=== PATIENT | female | born 2000 | race Caucasian/White ===

== ENCOUNTER 2023-01-24 16:55 | Observation (INO) | payer OTHER ==
[~2023-01-24] VITALS: Ht 154.9 cm; Wt 64.0 kg
[2023-01-24] MEDS ORDERED: PNV91TAB8 PO (17:33)
[2023-01-24 17:36] VITALS: BP 127/67
[2023-01-24] MEDS ORDERED: LIDOCAINE 1% 500 MG/50 ML VIAL ONE (18:46)
[2023-01-24] MEDS ORDERED: LIDOCAINE 1% 500 MG/50 ML VIAL INJ SCH (19:00)
[2023-01-24] MEDS ORDERED: AZITHROMYCIN 250 MG TAB PO SCH (19:30)
[2023-01-24] MEDS ORDERED: cefTRIAXone 1,000 MG in LIDOCAINE MPF 1% 2.1 ML IM ONE (19:30)
[2023-01-24] MEDS ORDERED: cefTRIAXone 1,000 MG VIAL ONE (20:12)
== END 2023-01-24 21:13 | disposition home or self-care (01) ==
LOC: MLD 16:55
PROVIDERS: ADMIT Obstetrics & Gynecology; ATTEND Obstetrics & Gynecology
DX: O23.593 Infection of other part of genital tract in pregnancy, third trimester (principal); Z3A.31 31 weeks gestation of pregnancy
CPT/HCPCS: 56420; G0378; J0696; J2001